=== PATIENT | female | born 1970 | race Hispanic/Latino ===

== ENCOUNTER 2021-12-17 03:49 | Emergency (ER) | payer OTHER ==
[2021-12-17 04:36] LABS: Hematocrit 38.7 % (36.0-45.0); MCV 88.4 fL (80-100); MPV 9.2 fL (7.6-11.3); RBC Red Blood Cell Count 4.37 M/uL (3.86-4.86)
[2021-12-17] MEDS ORDERED: NA CHLORIDE 0.9% 500 ML ONE (04:40)
[2021-12-17 04:52] LABS: Potassium 3.3 mmol/L (3.5-5.1)
--- NOTE | 2021-12-17 05:01 | ER ---
Nurse's Notes [facility] Name: Ivette Wilhelm Age: 51 yrs Sex: Female : 1970 Arrival Date: 12/17/2021 Time: 03:54 Bed 6 Private MD: Diagnosis: Hypokalemia;Generalized weakness Presentation: 12/17 04:05 Chief complaint: Patient states: she feels like she is dehydrated she reports has only kl drank two bottles of water denies nausea vomiting or intolerance of oral hydration. Coronavirus screen: Vaccine status: Patient reports being unvaccinated. Ebola Screen: Patient negative for fever greater than or equal to 101.5 degrees Fahrenheit, and additional compatible Ebola Virus Disease symptoms. Initial Sepsis Screen: Does the patient meet any 2 criteria? No. Patient's initial sepsis screen is negative. Does the patient have a suspected source of infection? No. Patient's initial sepsis screen is negative. Risk Assessment: Do you want to hurt yourself or someone else? Patient reports desire/thoughts of hurting themselves or someone else. Provider notified. 04:05 Method Of Arrival: Ambulatory 04:05 Acuity: WILLY 3 05:20 Onset of symptoms was December 17, 2021 at 01:00. Triage Assessment: 04:05 General: Appears in no apparent distress. comfortable, well developed, well nourished, kl Behavior is calm, cooperative. Pain: Denies pain. EENT: No deficits noted. Neuro: No deficits noted. Cardiovascular: No deficits noted. Respiratory: No deficits noted. GI: No deficits noted. No signs and/or symptoms were reported involving the gastrointestinal system. : No deficits noted. No signs and/or symptoms were reported regarding the genitourinary system. Derm: No deficits noted. Derm: No deficits noted. No signs and/or symptoms reported regarding the dermatologic system. Musculoskeletal: No deficits noted. No signs and/or symptoms reported regarding the musculoskeletal system. 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 - Social history:: Smoking status: Patient denies any tobacco usage or history of. Screenin:40 Abuse screen: Denies threats or abuse. Nutritional screening: No deficits noted. kl Tuberculosis screening: Fall Risk Vital Signs: 04:05 BP 141 / 79; Pulse 81; Resp 18; Temp 98.3(O); Pulse Ox 100% on R/A; Pain 0/10; kl 05:17 BP 117 / 66; Pulse 63; Resp 18; Pulse Ox 100% ; Pain 0/10; kl ED Course: 03:54 Patient arrived in ED. bp1 03:59 Montrell Foss DO is Attending Physician. ms3 04:30 Inserted saline lock: 20 gauge in right antecubital area, using aseptic technique. kl 04:37 Triage completed. kl 04:59 Gonzalo Amezquita DO is Referral Physician. ms3 05:09 Rajeev Enriquez, LOIDA is Primary Nurse. as6 05:19 No provider procedures requiring assistance completed. IV discontinued, intact, kl bleeding controlled, No redness/swelling at site. Pressure dressing applied. 05:19 Patient has correct armband on for positive identification. kl 05:20 Arm band placed on right wrist. kl Administered Medications: 04:35 Drug: Sodium Chloride 0.9% 500 ml Route: IVPB; Site: right antecubital; kl 05:00 Follow up: Response: Marked relief of symptoms; IV Status: Completed infusion; IV kl Intake: 500ml 05:11 Drug: Potassium Chloride 20 mEq Route: PO; kl 05:18 Follow up: Response: No adverse reaction kl Medication: 05:20 VIS not applicable for this client. kl Intake: 05:00 IV: 500ml; Total: 500ml. kl Outcome: 05:00 Discharge ordered by . ms3 05:19 Discharged to home ambulatory. kl 05:19 Condition: improved 05:19 Discharge instructions given to patient, Instructed on discharge instructions, follow up and referral plans. Demonstrated understanding of instructions, follow-up care. 05:20 Patient left the ED. kl Signatures: Devi Sanchez RN RN kl Montrell Foss DO DO ms3 Nohemi Nash [facility] Rajeev Enriquez RN RN as6
--- NOTE | 2021-12-17 05:01 | EDPHYS ---
Physician Documentation [facility] Name: Ivette Wilhelm Age: 51 yrs Sex: Female : 1970 Arrival Date: 12/17/2021 Time: 03:54 Bed 6 Private MD: ED Physician Montrell Foss HPI: 12/17 05:15 This 51 yrs old Female presents to ER via Ambulatory with complaints of ms3 Dehydrated. 05:15 51-year-old female with past medical history of hyperlipidemia presents for generalized ms3 weakness and feeling cold. Patient states she feels that she is dehydrated. Patient denies pain. Patient denies alleviating or inciting factors. Patient states she has had this sensation for 6 hours. Patient denies shortness of breath, fevers, chills, nausea, vomiting.. 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 - Social history:: Smoking status: Patient denies any tobacco usage or history of. ROS: 05:15 Constitutional: Negative for fever, and chills. ENT: Negative for injury, pain, and ms3 discharge, Neck: Negative for injury, pain, and swelling, Cardiovascular: Negative for chest pain, and palpitations. Respiratory: Negative for shortness of breath, cough, wheezing, and pleuritic chest pain, Abdomen/GI: Negative for abdominal pain, nausea, vomiting, diarrhea, and constipation. 05:15 MS/Extremity: Negative for injury and deformity, Skin: Negative for injury, rash, and discoloration. 05:15 Constitutional: Positive for 05:15 MS/extremity: 05:15 Neuro: Positive for weakness. 05:15 All other systems are negative. Exam: 05:15 Constitutional: This is a well developed, well nourished patient who is awake, alert, ms3 and in no acute distress. Head/Face: Normocephalic, atraumatic. Eyes: Pupils equal round and reactive to light, extra-ocular motions intact. Lids and lashes normal. Conjunctiva and sclera are non-icteric and not injected. Periorbital areas with no swelling, redness, or edema. Neck: Trachea midline, no cervical lymphadenopathy. Supple, full range of motion without nuchal rigidity, or vertebral point tenderness. No Meningismus. Chest/axilla: Normal chest wall appearance and motion. Nontender with no deformity. Cardiovascular: Regular rate and rhythm with a normal S1 and S2. No gallops, murmurs, or rubs. Normal PMI, no JVD. No pulse deficits. Respiratory: Lungs have equal breath sounds bilaterally, clear to auscultation and percussion. No rales, rhonchi or wheezes noted. No increased work of breathing, no retractions or nasal flaring. Abdomen/GI: Soft, non-tender, with normal bowel sounds. No distension or tympany. No guarding or rebound. No evidence of tenderness throughout. Skin: Warm, dry with normal turgor. Normal color with no rashes, no lesions, and no evidence of cellulitis. MS/ Extremity: Pulses equal, no cyanosis. Neurovascular intact. Full, normal range of motion. Psych: Awake, alert, with orientation to person, place and time. Behavior, mood, and affect are within normal limits. Vital Signs: 04:05 BP 141 / 79; Pulse 81; Resp 18; Temp 98.3(O); Pulse Ox 100% on R/A; Pain 0/10; kl 05:17 BP 117 / 66; Pulse 63; Resp 18; Pulse Ox 100% ; Pain 0/10; kl MDM: 04:16 Patient medically screened. ms3 05:15 Differential Diagnosis Anemia vs electrolyte abnormality vs dehydration. Data reviewed: ms3 vital signs, nurses notes, lab test result(s), and as a result, I will discharge patient. Counseling: I had a detailed discussion with the patient and/or guardian regarding: the historical points, exam findings, and any diagnostic results supporting the discharge/admit diagnosis, lab results, the need for outpatient follow up, to return to the emergency department if symptoms worsen or persist or if there are any questions or concerns that arise at home. ED course: On re-evaluation patient is improved, A/O x4, nad, non-toxic, ambulatory in ED, speaking full sentences.. 12/17 04:16 Order name: CBC w/o diff; Complete Time: 04:52 ms3 12/17 04:16 Order name: BMP; Complete Time: 04:57 ms3 Administered Medications: 04:35 Drug: Sodium Chloride 0.9% 500 ml Route: IVPB; Site: right antecubital; kl 05:00 Follow up: Response: Marked relief of symptoms; IV Status: Completed infusion; IV kl Intake: 500ml 05:11 Drug: Potassium Chloride 20 mEq Route: PO; kl 05:18 Follow up: Response: No adverse reaction kl Disposition Summary: 12/17/21 05:00 Discharge Ordered Location: Home ms3 Condition: Stable ms3 Diagnosis - Hypokalemia ms3 - Generalized weakness ms3 Followup: ms3 - With: Gonzalo Amezquita DO - When: 2 - 3 days - Reason: Re-evaluation by your physician Discharge Instructions: - Discharge Summary Sheet ms3 - Potassium Content of Foods ms3 - Hypokalemia ms3 Forms: - Medication Reconciliation Form ms3 - Thank You Letter ms3 - Antibiotic Education ms3 - Prescription Opioid Use ms3 Signatures: Dispatcher [employer] EDDevi Lagos, RN RN Montrell Cardenas DO DO ms3
[2021-12-17] MEDS ORDERED: POTASSIUM CL SA 10 MEQ TAB PO ONE (05:17)
[2021-12-17 05:43] VITALS: TEMP 98.3; O2SAT 100
[2021-12-17 05:45] VITALS: BP 117/66
== END 2021-12-17 05:20 | disposition home or self-care (01) ==
LOC: ER 03:49
DX: E87.6 Hypokalemia (principal); Z79.82 Long term (current) use of aspirin
CPT/HCPCS: 96365; 80048; 36415; 85027; 99283; J7040